=== PATIENT | male | born 1990 | race African-American/Black ===

== ENCOUNTER 2018-04-16 14:41 | Inpatient (IN) | payer MEDICAID ==
[~2018-04-16] VITALS: Ht 170.2 cm; Wt 95.5 kg
--- NOTE | ~2018-04-16 | MORECARE ---
CASE MANAGEMENT DISCHARGE SUMMARY PATIENT: ERI HUMPHREYS UNIT: [id number] ADM DATE: 04/16/18 AGE: 27 : 88 SEX: M ROOM/BED: D.2108 AUTHOR: JASPERDOC PHYSICIAN: REFERRING PHYSICIAN: ALEX MURPHY DO DATE OF SERVICE: 04/18/18 Discharge Plan Patient Name: ERI HUMPHREYS Facility: [facility]:[place] : 1990 Planned Disposition: Home Anticipated Discharge Date: 04/17/18 Discharge Date: 04/17/2018 Expected LOS: 1 Initial Reviewer: [email or web address] Initial Review Date: 04/16/2018 Generated: 04/18/18 12:10 pm Comments DCP- Discharge Planning Updated by [id number]: Katrin Wayne on 04/17/18 3:[address] LATE ENTRY 1115 CM HAS RECEIVED CONSULT TO MAKE SURE PATIENT HAS AUTOLET AND NEEDLES FOR CHECKING HIS BLOOD GLUCOSE LEVELS. PATIENT AND HIS FIANCE WERE RESTING IN BED WHEN CM VISITED. HE WOULD BE GOING HOME WITH HER. HE STATES HE HAS A GLUCOMETER AND NEEDLES AT HOME. I ASK HIM WHAT TYPE. HE DID NOT KNOW BUT STATED HE HAD RECEIVED IT FROM [facility] ON [facility]. DENIES HE NEEDS AN ADDITIONAL GLUCOMETER OR NEEDLES. HIS FIANCE STATED SHE WOULD MAKE SURE HE TAKES CARE OF HIMSELF. THEY WILL HAVE TRANSPORTATION TO HOME. HE RECEIVES HIS MEDICATIONS FROM [facility] ON [facility] AND [facility]. CM SPOKE WUTH THE PHARMACIST, WHO STATED THE [employer] GLUCOSE MONITOR AND NEEDLES ARE THE MOST REASONABLE TO PURCHASE. PATIENT WAS SCANNING HIS CELL PHONE AND TALKING ON HIS PHONE DURING THE ASSESSMENT. HE AND HIS FIANCE WOULD ANSWERS QUESTIONS VERY BRIEFLY. CM ADVISED HIS NURSE, MARJAN. REVIEWED DISCHARGE MEDS. PATIENT HAS MEDICAID PENDING. NURSE CALLED [facility] ON [place] AND PHARMACIST STATED THE INSULINS ORDERED AT DISCHARGE WOULD COST $480.00. TC TO NURSING KAIAKO KURA KAUPAPA MAORI. LUÍS. SHE WILL CALL ADMIMISTRATOR WELDING EQUIPMENT SALES REPRESENTATIVE TO REQUEST MEDICATION BE GIVEN AT DISCHARGE. THE CONTRACTED PHARMACY IS CLOSED ON SUNDAYS. NO GREGG PULIDO WHICH WOULD NOT COVER COST. REQUEST ASSISTANCE TO PREVENT READMISSION AND WORSEN STATUS.. 1210 NURSING KAIAKO KURA KAUPAPA MAORI CALLED CFO LANDRY. APPROVAL TO ASSIST RECEIVED. 1310 APPROVAL RECEIVED FOR INSULINS AT DISCHARGE FROM HOSPITAL PHARMACY WITH INSTRUCTION TO THE PATIENT. INSULIN NEEDLES TO ALSO BE SUPPLIED. NURSING WILL OBTAIN FOR THE PATIENT. NURSING KAIAKO KURA KAUPAPA MAORI ASSISTING. Last DP export: 04/17/18 3:58 Patient Name: ERI HUMPHREYS Page [id number] at 1110 All edits/amendments must be made on the electronic document DICTATION DATE: 04/18/181108 BIOLOGICAL SCIENCE TECHNICIAN: ROBE 04/18/181108 RPT#: [id number] DC DATE:04/17/18 STATUS: DIS IN [facility] [address] [place] [address] END OF REPORT
--- NOTE | ~2018-04-16 | MORECARE ---
CASE MANAGEMENT DISCHARGE SUMMARY PATIENT: ERI HUMPHREYS UNIT: [id number] ADM DATE: 04/16/18 AGE: 27 : 88 SEX: M ROOM/BED: D.2103 AUTHOR: JADA HUTCHINSON PHYSICIAN: REFERRING PHYSICIAN: ALEX MURPHY DO DATE OF SERVICE: 04/17/18 Discharge Plan Patient Name: ERI HUMPHREYS [facility] [facility] 1990 Planned Disposition: Home Anticipated Discharge Date: 04/17/18 Discharge Date: 04/17/2018 Expected LOS: 1 Initial Reviewer: [id number] Initial Review Date: 04/16/2018 Generated: 04/17/18 5:39 pm Patient Name: ERI HUMPHREYS Page [id number] at 1639 All edits/amendments must be made on the electronic document DICTATION DATE: 04/17/188 PARTICLE BOARD SUPERVISOR: ROBE 04/17/18 1638 RPT#: [id number] DC DATE:04/17/18 STATUS: DIS IN [facility] [address] [place] [address] END OF REPORT
--- NOTE | ~2018-04-16 | MORECARE ---
CASE MANAGEMENT DISCHARGE SUMMARY PATIENT: ERI HUMPHREYS UNIT: [id number] ADM DATE: 04/16/18 AGE: 27 : 88 SEX: M ROOM/BED: D.2105 AUTHOR: JASPERDOC PHYSICIAN: REFERRING PHYSICIAN: ALEX MURPHY DO DATE OF SERVICE: 04/17/18 Discharge Plan Patient Name: ERI HUMPHREYS Facility: [facility]:[place] : 1990 Planned Disposition: Home Anticipated Discharge Date: 04/17/18 Discharge Date: 04/17/2018 Expected LOS: 1 Initial Reviewer: [email or web address] Initial Review Date: 04/16/2018 Generated: 04/17/18 5:58 pm Comments DCP- Discharge Planning Updated by [id number]: Katrin Rowan on 04/17/18 3:[address] LATE ENTRY 1115 CM HAS RECEIVED CONSULT TO MAKE SURE PATIENT HAS AUTOLET AND NEEDLES FOR CHECKING HIS BLOOD GLUCOSE LEVELS. PATIENT AND HIS FIANCE WERE RESTING IN BED WHEN CM VISITED. HE WOULD BE GOING HOME WITH HER. HE STATES HE HAS A GLUCOMETER AND NEEDLES AT HOME. I ASK HIM WHAT TYPE. HE DID NOT KNOW BUT STATED HE HAD RECEIVED IT FROM [employer] ON [facility]. DENIES HE NEEDS AN ADDITIONAL GLUCOMETER OR NEEDLES. HIS FIANCE STATED SHE WOULD MAKE SURE HE TAKES CARE OF HIMSELF. THEY WILL HAVE TRANSPORTATION TO HOME. HE RECEIVES HIS MEDICATIONS FROM [facility] ON [facility] AND [facility]. CM SPOKE WUTH THE PHARMACIST, WHO STATED THE [employer] GLUCOSE MONITOR AND NEEDLES ARE THE MOST REASONABLE TO PURCHASE. PATIENT WAS SCANNING HIS CELL PHONE AND TALKING ON HIS PHONE DURING THE ASSESSMENT. HE AND HIS FIANCE WOULD ANSWERS QUESTIONS VERY BRIEFLY. CM ADVISED HIS NURSE, MARJAN. REVIEWED DISCHARGE MEDS. PATIENT HAS MEDICAID PENDING. NURSE CALLED [facility] ON [place] AND PHARMACIST STATED THE INSULINS ORDERED AT DISCHARGE WOULD COST $480.00. TC TO NURSING MACHINE TANK OPERATOR. LUÍS. SHE WILL CALL ADMIMISTRATOR LINE PATROLMAN TO REQUEST MEDICATION BE GIVEN AT DISCHARGE. THE CONTRACTED PHARMACY IS CLOSED ON SUNDAYS. NO GREGG PULIDO WHICH WOULD NOT COVER COST. REQUEST ASSISTANCE TO PREVENT READMISSION AND WORSEN STATUS.. 1210 NURSING MACHINE TANK OPERATOR CALLED [facility]. APPROVAL TO ASSIST RECEIVED. 1310 APPROVAL RECEIVED FOR INSULINS AT DISCHARGE FROM HOSPITAL PHARMACY WITH INSTRUCTION TO THE PATIENT. INSULIN NEEDLES TO ALSO BE SUPPLIED. NURSING WILL OBTAIN FOR THE PATIENT. NURSING MACHINE TANK OPERATOR ASSISTING. Last DP export: 04/17/18 3:39 Patient Name: ERI HUMPHREYS Page [phone] at 1148 All edits/amendments must be made on the electronic document DICTATION DATE: 04/17/181657 LEGAL DEPARTMENT MANAGER: ROEB 04/17/181657 RPT#: [id number] DC DATE:04/17/18 STATUS: DIS IN [facility] [address] [place] [address] END OF REPORT
[~2018-04-16 14:41] MED LIST: GLUCOPHAGE1000 MG PO; LANTUS SOL100 UNIT/1 SC
[2018-04-16 15:16] LABS: BASOPHILS 0.2 % (0-2); EOSINOPHILS 0.8 % (0-7); HEMATOCRIT 48.3 % (42.0-54.0); HEMOGLOBIN 17.3 g/dL (13.5-17.5); IMMATURE GRANULOCYTES 0.1 % (0-5); LYMPHOCYTES 18.9 % (15-50); MCH 30.8 pg (26.0-34.0); MCHC 35.8 g/dL (31.0-37.0); MCV 85.9 fL (80.0-100.0); MEAN PLATELET VOLUME 10.4 fL (7.4-10.4); MONOCYTES 8.7 % (2-11); NEUTROPHILS 71.3 % (40-80); PLATELET COUNT 216 10x3/uL (130-400); RBC 5.62 10x6/uL (4.20-6.10); RDW 11.8 % (11.5-14.5); WBC 8.4 10x3/uL (4.8-10.8)
[2018-04-16 15:38] LABS: ALBUMIN 3.9 g/dL (3.4-5.0); ALKALINE PHOSPHATASE 185 U/L (46-116); ALT (SGPT) 27 U/L (10-68); BILIRUBIN - TOTAL 1.32 mg/dL (0.2-1.3); CALCIUM 10.2 mg/dL (8.5-10.1); CARBON DIOXIDE 30.3 mmol/L (21.0-32.0); CREATININE - SERUM 1.6 mg/dL (0.6-1.3); MAGNESIUM - SERUM 2.1 mg/dL (1.8-2.4); POTASSIUM - SERUM 4.5 mmol/L (3.5-5.1); PROTEIN - SERUM 8.6 g/dL (6.4-8.2); SODIUM 124 mmol/L (136-145); UREA NITROGEN 24 mg/dL (7-18); eGFR NON AFRICAN AMERICAN 55 mL/min (90-120)
[2018-04-16 15:44] LABS: KETONE - SERUM NEGATIVE (NEGATIVE)
[2018-04-16 15:46] LABS: CALC OSMOLALITY 292 mosm/kg (275-300); CHLORIDE - SERUM 84 mmol/L (98-107); GLUCOSE 798 mg/dL (74-106)
[2018-04-16 15:55] LABS: APPEARANCE CLEAR (CLEAR); COLOR STRAW (YELLOW); GLUCOSE 1000 mg/dL (NEGATIVE); KETONE NEGATIVE (NEGATIVE); NITRITE NEGATIVE (NEGATIVE); PROTEIN NEGATIVE (NEGATIVE); SPECIFIC GRAVITY 1.005 (1.005-1.020); UROBILINOGEN NORMAL (NORMAL)
[2018-04-16 15:56] LABS: BILIRUBIN NEGATIVE (NEGATIVE)
[2018-04-16 15:57] LABS: BACTERIA FEW /hpf (NONE SEEN); RED CELLS - URINE 0-5 /hpf (0-5); WHITE CELLS - URINE OCC /hpf (0-5)
[2018-04-16 17:00] VITALS: BP 138/89; BP 149/114
[2018-04-16 18:19] VITALS: BP 152/105
[2018-04-16 22:26] VITALS: BP 138/89; Ht 170.2 cm; Wt 95.5 kg
[2018-04-17] VITALS: BP 116/74
[2018-04-17 05:37] VITALS: BP 108/76
[2018-04-17 06:21] LABS: CALCIUM 8.9 mg/dL (8.5-10.1); CARBON DIOXIDE 27.8 mmol/L (21.0-32.0); CHLORIDE - SERUM 98 mmol/L (98-107); CREATININE - SERUM 1.2 mg/dL (0.6-1.3); POTASSIUM - SERUM 4.2 mmol/L (3.5-5.1); SODIUM 134 mmol/L (136-145); eGFR NON AFRICAN AMERICAN 77 mL/min (90-120)
[2018-04-17 06:26] LABS: CALC OSMOLALITY 281 mosm/kg (275-300); GLUCOSE 336 mg/dL (74-106); UREA NITROGEN 16 mg/dL (7-18)
[2018-04-17] MEDS ORDERED: BASAGLAR K100 UNIT/1 SC (09:38)
[2018-04-17] MEDS ORDERED: HUMALOG 30100 UNITS/ SC (09:39)
== END 2018-04-17 15:26 | disposition home or self-care (01) | DRG 639 ==
LOC: D.ER 14:41 → D.EDHOLD 20:03 → D.M2 20:03
PROVIDERS: Emergency Medicine; Family Medicine
DX: E10.65 Type 1 diabetes mellitus with hyperglycemia (principal); Z79.4 Long term (current) use of insulin; Z91.14 Patient's other noncompliance with medication regimen; I10 Essential (primary) hypertension; F41.9 Anxiety disorder, unspecified; Z72.0 Tobacco use; R63.1 Polydipsia